=== PATIENT | male | born 1930 | race Caucasian/White ===

== ENCOUNTER 2017-01-16 16:00 | Inpatient (IN) | payer OTHER ==
[~2017-01-16] VITALS: Ht 157.5 cm; Wt 49.9 kg
[~2017-01-16 16:00] MED LIST: AMLO-512 PO; ASPI-1182 PO; GLIP5 PO; METF500T4 PO; ROSU10 PO; VALS160T2 PO
[2017-01-16 16:37] LABS: GLUCOSE,POINT OF CARE 93 MG/DL (70-110)
[2017-01-16 17:14] LABS: BASOPHILS % (AUTO) 0.3 % (0.0-2.0); EOSINOPHILS % (AUTO) 2.4 % (1.0-6.0); LYMPHOCYTES # (AUTO) 0.8 K/uL (1.0-4.8); LYMPHOCYTES % (AUTO) 15.1 % (22.0-44.0); MEAN CORPUSCULAR HEMOGLOBIN 30.2 pg (26.0-34.0); MEAN CORPUSCULAR HGB CONC 34.5 G/dL (31.0-37.0); MEAN CORPUSCULAR VOLUME 87 fL (80-100); MONOCYTES # (AUTO) 0.4 K/uL (0.1-1.0); MONOCYTES % (AUTO) 7.7 % (2.0-9.0); NEUTROPHILS % (AUTO) 74.5 % (40.0-70.0); PLATELET COUNT (AUTO) 103 K/uL (150-450); RED BLOOD CELL COUNT(AUTO) 1.84 MIL/uL (4.50-5.90); RED CELL DISTRIBUTION WIDTH 18.6 % (11.5-14.5); WHITE BLOOD COUNT (AUTO) 5.4 K/uL (4.5-11.0)
[2017-01-16 17:20] LABS: HEMATOCRIT 16.1 % (41-53); HEMOGLOBIN 5.6 g/dL (13.5-17.5)
[2017-01-16 17:26] LABS: PROTHROMBIN TIME 10.7 SEC (9.4-11.6)
[2017-01-16 17:32] LABS: B-TYPE NATRIURETIC PEPTIDE 363 pg/mL (0-100)
[2017-01-16 17:42] LABS: CHLORIDE 121 mmol/L (98-107); RBC MORPHOLOGY COMMENT ABNORMAL RBC MORPH; SODIUM SERUM 155 mmol/L (136-145)
[2017-01-16 17:43] LABS: ALANINE AMINOTRANSFERASE 21 U/L (12-78); ALBUMIN 3.1 g/dL (3.4-5.0); ASPARTATE AMINOTRANSFERASE 21 U/L (15-37); BILIRUBIN,TOTAL 0.3 mg/dL (0.1-1.0); CALCIUM, TOTAL 9.4 mg/dL (8.8-10.5); CREATINE KINASE, TOTAL 105 U/L (39-308); CREATININE 12.91 mg/dL (0.60-1.30); GLOMERULAR FILTR. RATE CALC 4 mL/min (>60); TOTAL PROTEIN, SERUM 6.3 g/dL (6.4-8.2)
[2017-01-16 17:46] LABS: ANION GAP 25 mmol/L (8-16); CARBON DIOXIDE 9 mmol/L (22-29)
[2017-01-16 17:47] LABS: POTASSIUM 6.1 mmol/L (3.5-5.1); UREA NITROGEN, BLOOD 174 mg/dL (7-18)
[2017-01-16 17:54] LABS: CREATINE KINASE MB 4.7 ng/mL (0-5)
[2017-01-16] MEDS ORDERED: SODIUM POLYSTYRENE SULFONATE 15 GM/60 ML SUSPENSION BOTTLE PO ONE ×2 (18:00→18:45)
[2017-01-16] MEDS ORDERED: CALCIUM GLUCONATE 100 MG/ML 10 ML IVP ONE (18:00)
[2017-01-16] MEDS ORDERED: ALBUTEROL SULFATE 2.5 MG/0.5 ML NEB SOLUTION NEB ONE (18:00)
[2017-01-16] MEDS ORDERED: SODIUM BICARBONATE 75 MEQ in DEXTROSE 5%-WATER 1,000 ML IV ONE (18:45)
[2017-01-16] MEDS ORDERED: 0.9% SODIUM CHLORIDE 5 ML NEB SOLUTION NEB ONE (18:55)
[2017-01-16] MEDS ORDERED: SODIUM BICARBONATE [ADULT] 8.4% 50 MEQ/50 ML SYRINGE IVP ONE (20:15)
[2017-01-16] MEDS ORDERED: ONDANSETRON HCL 4 MG/2 ML VIAL IVP PRN (20:15)
[2017-01-16] MEDS ORDERED: ACETAMINOPHEN 325 MG TABLET PO PRN (20:15)
[2017-01-16] MEDS ORDERED: 0.9% SODIUM CHLORIDE 10 ML SYRINGE IVP PRN (20:15)
[2017-01-16 21:40] LABS: CALCIUM, TOTAL 9.4 mg/dL (8.8-10.5); CREATININE 12.86 mg/dL (0.60-1.30)
[2017-01-16] MEDS ORDERED: SODIUM CHLORIDE 0.9% 250 ML IV ONE (22:00)
[2017-01-16] MEDS ORDERED: FUROSEMIDE 20 MG/2 ML VIAL IVP ONE (22:15)
[2017-01-16] MEDS ORDERED: ACETAMINOPHEN 325 MG TABLET PO ONE (22:15)
[2017-01-16 22:40] VITALS: BP 149/59
[2017-01-16 22:55] VITALS: BP 144/58
[2017-01-16 23:10] VITALS: BP 151/59
[2017-01-16 23:40] VITALS: BP 141/67
[2017-01-17] VITALS (28 sets, daily range): BP systolic 109–182; BP diastolic 50–93
[2017-01-17 04:01] LABS: CREATININE 12.3 mg/dL (0.60-1.30); POTASSIUM 4.6 mmol/L (3.5-5.1)
[2017-01-17 07:30] LABS: EOSINOPHILS % (AUTO) 0.9 % (1.0-6.0); HEMATOCRIT 27.6 % (41-53); HEMOGLOBIN 9.6 g/dL (13.5-17.5); LYMPHOCYTES # (AUTO) 0.6 K/uL (1.0-4.8); LYMPHOCYTES % (AUTO) 9.5 % (22.0-44.0); MEAN CORPUSCULAR HEMOGLOBIN 30.4 pg (26.0-34.0); MEAN CORPUSCULAR HGB CONC 34.8 G/dL (31.0-37.0); MEAN CORPUSCULAR VOLUME 87 fL (80-100); MONOCYTES # (AUTO) 0.4 K/uL (0.1-1.0); MONOCYTES % (AUTO) 6.3 % (2.0-9.0); NEUTROPHILS # (AUTO) 5.3 K/uL (1.8-7.7); NEUTROPHILS % (AUTO) 83.3 % (40.0-70.0); PLATELET COUNT (AUTO) 90 K/uL (150-450); RED BLOOD CELL COUNT(AUTO) 3.16 MIL/uL (4.50-5.90); RED CELL DISTRIBUTION WIDTH 15.5 % (11.5-14.5); WHITE BLOOD COUNT (AUTO) 6.4 K/uL (4.5-11.0)
[2017-01-17 07:46] LABS: ALBUMIN 2.9 g/dL (3.4-5.0); BILIRUBIN,TOTAL 0.6 mg/dL (0.1-1.0); CALCIUM, TOTAL 8.8 mg/dL (8.8-10.5); CREATININE 12.17 mg/dL (0.60-1.30); MAGNESIUM 1.9 mg/dL (1.80-2.40); POTASSIUM 4.5 mmol/L (3.5-5.1)
[2017-01-17] MEDS: AmLODIPine BESYLATE 10 MG TABLET PO SCH (07:53)
[2017-01-17] MEDS: VALSARTAN 160 MG TABLET PO SCH (07:53)
[2017-01-17] MEDS: ROSUVASTATIN CALCIUM 10 MG TABLET PO SCH (07:53)
[2017-01-17] MEDS ORDERED: ASPIRIN 81 MG EC TABLET PO SCH (09:00)
[2017-01-17] MEDS: OXYGEN THERAPY IH SCH ×2 (09:03→20:54)
[2017-01-17] MEDS ORDERED: DEXTROSE 50%-WATER 25 GM/50 ML SYRINGE IVP PRN (13:30)
[2017-01-17 13:42] LABS: CALCIUM, TOTAL 8.8 mg/dL (8.8-10.5); CREATININE 12.36 mg/dL (0.60-1.30); POTASSIUM 4.3 mmol/L (3.5-5.1)
[2017-01-17] MEDS: HydrALAZINE HCL 20 MG/ML VIAL IVP PRN ×2 (17:07→23:55)
[2017-01-17 19:42] LABS: CALCIUM, TOTAL 8.6 mg/dL (8.8-10.5); CREATININE 12.21 mg/dL (0.60-1.30); POTASSIUM 4.4 mmol/L (3.5-5.1)
[2017-01-17] MEDS: INSULIN ASPART 100 UNITS/ML SQ PRN (20:54)
[2017-01-17] MEDS: PANTOPRAZOLE SODIUM 40 MG/VIAL IVP SCH (23:55)
[2017-01-18 00:27] LABS: GLUCOSE,POINT OF CARE 106 MG/DL (70-110)
[2017-01-18 00:27] LABS: GLUCOSE,POINT OF CARE 98 MG/DL (70-110)
[2017-01-18 05:12] VITALS: BP 158/74
[2017-01-18] MEDS: INSULIN ASPART 100 UNITS/ML SQ PRN ×3 (05:58→21:00)
[2017-01-18 06:26] LABS: LYMPHOCYTES # (AUTO) 0.9 K/uL (1.0-4.8); MONOCYTES # (AUTO) 0.4 K/uL (0.1-1.0)
[2017-01-18 06:35] LABS: BASOPHILS % (AUTO) 0.3 % (0.0-2.0); EOSINOPHILS % (AUTO) 2.1 % (1.0-6.0); HEMATOCRIT 28.8 % (41-53); LYMPHOCYTES % (AUTO) 14.5 % (22.0-44.0); MEAN CORPUSCULAR HEMOGLOBIN 30.2 pg (26.0-34.0); MEAN CORPUSCULAR HGB CONC 34.9 G/dL (31.0-37.0); MEAN CORPUSCULAR VOLUME 87 fL (80-100); MONOCYTES % (AUTO) 5.8 % (2.0-9.0); NEUTROPHILS % (AUTO) 77.3 % (40.0-70.0); PLATELET COUNT (AUTO) 97 K/uL (150-450); RED BLOOD CELL COUNT(AUTO) 3.32 MIL/uL (4.50-5.90); RED CELL DISTRIBUTION WIDTH 16.1 % (11.5-14.5); WHITE BLOOD COUNT (AUTO) 6.5 K/uL (4.5-11.0)
[2017-01-18 06:44] LABS: CALCIUM, TOTAL 8.5 mg/dL (8.8-10.5); CREATININE 11.96 mg/dL (0.60-1.30); MAGNESIUM 1.7 mg/dL (1.80-2.40); PHOSPHORUS 7.1 mg/dL (2.5-4.9); POTASSIUM 4.1 mmol/L (3.5-5.1)
[2017-01-18 07:20] VITALS: BP 165/78
[2017-01-18] MEDS ORDERED: SODIUM CHLORIDE 0.45% 1,000 ML IV SCH (08:08)
[2017-01-18] MEDS: AmLODIPine BESYLATE 10 MG TABLET PO SCH (08:38)
[2017-01-18] MEDS: PANTOPRAZOLE SODIUM 40 MG/VIAL IVP SCH ×2 (08:38→20:44)
[2017-01-18] MEDS: VALSARTAN 160 MG TABLET PO SCH (08:38)
[2017-01-18] MEDS: ROSUVASTATIN CALCIUM 10 MG TABLET PO SCH (08:38)
[2017-01-18] MEDS: EPOETIN ALFA 10,000 UNITS/ML VIAL SQ SCH (08:39)
[2017-01-18] MEDS: OXYGEN THERAPY IH SCH ×2 (09:01→20:45)
[2017-01-18] MEDS ORDERED: LACTULOSE 20 GM/30 ML SOLUTION UDCUP PO PRN (09:30)
[2017-01-18] MEDS ORDERED: BISACODYL 10 MG RECTAL RECTAL SUPPOSITORY PR PRN (09:30)
[2017-01-18 10:23] VITALS: BP 155/79
[2017-01-18] MEDS: SODIUM BICARBONATE 75 MEQ in DEXTROSE 5%-WATER 1,000 ML IV SCH (11:57)
[2017-01-18 15:52] VITALS: BP 133/64
[2017-01-18 20:42] VITALS: BP 168/85
[2017-01-18 23:51] VITALS: BP 164/70
[2017-01-19] MEDS: SODIUM BICARBONATE 75 MEQ in DEXTROSE 5%-WATER 1,000 ML IV SCH ×2 (03:05→17:13)
[2017-01-19 05:17] VITALS: BP 164/67
[2017-01-19] MEDS: INSULIN ASPART 100 UNITS/ML SQ PRN ×3 (06:15→22:32)
[2017-01-19 06:46] LABS: EOSINOPHILS % (AUTO) 0.9 % (1.0-6.0); HEMATOCRIT 28.3 % (41-53); HEMOGLOBIN 9.8 g/dL (13.5-17.5); LYMPHOCYTES # (AUTO) 0.7 K/uL (1.0-4.8); LYMPHOCYTES % (AUTO) 6.9 % (22.0-44.0); MEAN CORPUSCULAR HEMOGLOBIN 30.1 pg (26.0-34.0); MEAN CORPUSCULAR HGB CONC 34.7 G/dL (31.0-37.0); MEAN CORPUSCULAR VOLUME 87 fL (80-100); MONOCYTES # (AUTO) 0.6 K/uL (0.1-1.0); NEUTROPHILS # (AUTO) 8.9 K/uL (1.8-7.7); PLATELET COUNT (AUTO) 98 K/uL (150-450); RED BLOOD CELL COUNT(AUTO) 3.26 MIL/uL (4.50-5.90); RED CELL DISTRIBUTION WIDTH 16.4 % (11.5-14.5); WHITE BLOOD COUNT (AUTO) 10.3 K/uL (4.5-11.0)
[2017-01-19 06:53] LABS: NEUTROPHILS % (AUTO) 86.2 % (40.0-70.0)
[2017-01-19 07:16] VITALS: BP 148/79
[2017-01-19 07:36] LABS: CALCIUM, TOTAL 8.3 mg/dL (8.8-10.5); CREATININE 11.11 mg/dL (0.60-1.30); MAGNESIUM 1.5 mg/dL (1.80-2.40); PHOSPHORUS 6.6 mg/dL (2.5-4.9); POTASSIUM 3.8 mmol/L (3.5-5.1)
[2017-01-19 08:21] VITALS: BP 152/79
[2017-01-19] MEDS: VALSARTAN 160 MG TABLET PO SCH (08:29)
[2017-01-19] MEDS: PANTOPRAZOLE SODIUM 40 MG/VIAL IVP SCH ×2 (08:31→20:28)
[2017-01-19] MEDS: AmLODIPine BESYLATE 10 MG TABLET PO SCH (08:33)
[2017-01-19] MEDS: ROSUVASTATIN CALCIUM 10 MG TABLET PO SCH (08:35)
[2017-01-19] MEDS: OXYGEN THERAPY IH SCH ×2 (08:45→20:28)
[2017-01-19 09:08] LABS: RBC MORPHOLOGY COMMENT ABNORMAL RBC MORPH
[2017-01-19 11:57] VITALS: BP 147/80
[2017-01-19 12:13] LABS: GLUCOSE,POINT OF CARE 130 MG/DL (70-110)
[2017-01-19 12:13] LABS: GLUCOSE,POINT OF CARE 184 MG/DL (70-110)
[2017-01-19 12:13] LABS: GLUCOSE,POINT OF CARE 122 MG/DL (70-110)
[2017-01-19 12:13] LABS: GLUCOSE,POINT OF CARE 166 MG/DL (70-110)
[2017-01-19 15:10] VITALS: BP 114/71
[2017-01-19] MEDS ORDERED: ACETAMINOPHEN 325 MG TABLET PO PRN (17:00)
[2017-01-19 20:17] VITALS: BP_SYST 156; BP_SYST 157; BP_DIAS 65; BP_DIAS 67
[2017-01-19 22:17] LABS: GLUCOSE,POINT OF CARE 89 MG/DL (70-110)
[2017-01-19 22:22] LABS: GLUCOSE,POINT OF CARE 172 MG/DL (70-110)
[2017-01-19 22:23] LABS: GLUCOSE,POINT OF CARE 75 MG/DL (70-110)
[2017-01-19 22:37] LABS: GLUCOSE COMMENT 1 Received Meds; GLUCOSE,POINT OF CARE 260 MG/DL (70-110)
[2017-01-20 00:29] VITALS: BP 159/62
[2017-01-20 06:17] VITALS: BP 167/67
[2017-01-20] MEDS: SODIUM BICARBONATE 75 MEQ in DEXTROSE 5%-WATER 1,000 ML IV SCH (06:27)
[2017-01-20 07:48] VITALS: BP 162/85
[2017-01-20] MEDS: OXYGEN THERAPY IH SCH ×2 (09:17→20:00)
[2017-01-20] MEDS: AmLODIPine BESYLATE 10 MG TABLET PO SCH (09:17)
[2017-01-20] MEDS: ROSUVASTATIN CALCIUM 10 MG TABLET PO SCH (09:17)
[2017-01-20] MEDS: PANTOPRAZOLE SODIUM 40 MG/VIAL IVP SCH ×2 (09:17→20:27)
[2017-01-20] MEDS: VALSARTAN 160 MG TABLET PO SCH (09:17)
[2017-01-20] MEDS: EPOETIN ALFA 10,000 UNITS/ML VIAL SQ SCH (09:18)
[2017-01-20 12:01] VITALS: BP 139/59
[2017-01-20] MEDS: INSULIN ASPART 100 UNITS/ML SQ PRN (12:42)
[2017-01-20 16:32] VITALS: BP 163/65
[2017-01-20 19:54] VITALS: BP 142/63
[2017-01-20 20:12] LABS: GLUCOSE COMMENT 1 Repeated; GLUCOSE,POINT OF CARE 136 MG/DL (70-110)
[2017-01-20 20:38] LABS: GLUCOSE,POINT OF CARE 184 MG/DL (70-110)
[2017-01-20 20:38] LABS: GLUCOSE COMMENT 1 Juice/Food/D50 Given; GLUCOSE,POINT OF CARE 69 MG/DL (70-110)
[2017-01-21] VITALS (8 sets, daily range): BP systolic 16–178; BP diastolic 58–77
[2017-01-21] MEDS: SODIUM BICARBONATE 75 MEQ in DEXTROSE 5%-WATER 1,000 ML IV SCH ×2 (01:44→16:23)
[2017-01-21 06:07] LABS: GLUCOSE,POINT OF CARE 107 MG/DL (70-110)
[2017-01-21] MEDS: OXYGEN THERAPY IH SCH ×2 (08:00→20:00)
[2017-01-21] MEDS: ROSUVASTATIN CALCIUM 10 MG TABLET PO SCH (09:28)
[2017-01-21] MEDS: PANTOPRAZOLE SODIUM 40 MG/VIAL IVP SCH ×2 (09:28→20:54)
[2017-01-21] MEDS: VALSARTAN 160 MG TABLET PO SCH (09:29)
[2017-01-21] MEDS: AmLODIPine BESYLATE 10 MG TABLET PO SCH (09:29)
[2017-01-21] MEDS: INSULIN ASPART 100 UNITS/ML SQ PRN ×2 (11:55→18:11)
[2017-01-21 13:42] LABS: GLUCOSE,POINT OF CARE 86 MG/DL (70-110)
[2017-01-21 18:28] LABS: GLUCOSE,POINT OF CARE 199 MG/DL (70-110)
[2017-01-21 18:28] LABS: GLUCOSE COMMENT 1 Received Meds; GLUCOSE,POINT OF CARE 142 MG/DL (70-110)
[2017-01-21 20:02] LABS: GLUCOSE,POINT OF CARE 260 MG/DL (70-110)
[2017-01-22 05:15] VITALS: BP 155/72
[2017-01-22 05:33] LABS: GLUCOSE COMMENT 1 Received Meds; GLUCOSE,POINT OF CARE 145 MG/DL (70-110)
[2017-01-22] MEDS: SODIUM BICARBONATE 75 MEQ in DEXTROSE 5%-WATER 1,000 ML IV SCH ×2 (06:15→23:59)
[2017-01-22 07:02] LABS: GLUCOSE,POINT OF CARE 132 MG/DL (70-110)
[2017-01-22 08:00] VITALS: BP 158/78
[2017-01-22] MEDS: OXYGEN THERAPY IH SCH (08:00)
[2017-01-22] MEDS: ROSUVASTATIN CALCIUM 10 MG TABLET PO SCH (08:11)
[2017-01-22] MEDS: AmLODIPine BESYLATE 10 MG TABLET PO SCH (08:11)
[2017-01-22] MEDS: PANTOPRAZOLE SODIUM 40 MG/VIAL IVP SCH ×2 (08:11→20:17)
[2017-01-22] MEDS: VALSARTAN 160 MG TABLET PO SCH (08:11)
[2017-01-22 11:19] VITALS: BP 155/71
[2017-01-22 16:12] VITALS: BP 147/68
[2017-01-22] MEDS: INSULIN ASPART 100 UNITS/ML SQ PRN (17:26)
[2017-01-22 17:58] LABS: GLUCOSE COMMENT 1 Received Meds; GLUCOSE,POINT OF CARE 200 MG/DL (70-110)
[2017-01-22 19:47] VITALS: BP 161/77
[2017-01-22 20:38] LABS: GLUCOSE,POINT OF CARE 87 MG/DL (70-110)
[2017-01-22 23:30] VITALS: BP 151/72
[2017-01-23 05:32] VITALS: BP 154/71
[2017-01-23 08:11] VITALS: BP 159/65
[2017-01-23 08:47] LABS: GLUCOSE,POINT OF CARE 98 MG/DL (70-110)
[2017-01-23] MEDS: OXYGEN THERAPY IH SCH ×2 (08:51→09:07)
[2017-01-23] MEDS: ROSUVASTATIN CALCIUM 10 MG TABLET PO SCH (08:52)
[2017-01-23] MEDS: VALSARTAN 160 MG TABLET PO SCH (08:52)
[2017-01-23] MEDS: EPOETIN ALFA 10,000 UNITS/ML VIAL SQ SCH (08:52)
[2017-01-23] MEDS: PANTOPRAZOLE SODIUM 40 MG/VIAL IVP SCH (08:52)
[2017-01-23] MEDS: AmLODIPine BESYLATE 10 MG TABLET PO SCH (08:53)
[2017-01-23 11:15] VITALS: BP 154/64
[2017-01-23] MEDS: INSULIN ASPART 100 UNITS/ML SQ PRN (11:36)
[2017-01-23] MEDS ORDERED: INFLUENZA VIRUS VACCINE QVS 2017-18 (3YR+)/PF 60 MCG/0.5 ML SYRINGE IM ONE (11:45)
[2017-01-23 11:48] LABS: GLUCOSE COMMENT 1 Received Meds; GLUCOSE,POINT OF CARE 172 MG/DL (70-110)
[2017-01-23 18:57] LABS: GLUCOSE,POINT OF CARE 106 MG/DL (70-110)
[2017-01-23 19:59] VITALS: BP 153/66
== END 2017-01-23 20:30 | DRG 377 ==
LOC: EMS 16:06 → 5S 21:08 → 6N 01-20 15:25
PROVIDERS: ADMIT Family Medicine; ATTEND Family Medicine
PROC: 30233N1 Transfusion of Nonautologous Red Blood Cells into Peripheral Vein, Percutaneous Approach (ICD-10-PCS; principal; 2017-01-16)
PROC: 3E0234Z Introduction of Serum, Toxoid and Vaccine into Muscle, Percutaneous Approach (ICD-10-PCS; 2017-01-23)
DX: K92.1 Melena (principal); E43 Unspecified severe protein-calorie malnutrition; N17.9 Acute kidney failure, unspecified; E87.0 Hyperosmolality and hypernatremia; E87.2 Acidosis; E11.22 Type 2 diabetes mellitus with diabetic chronic kidney disease; E86.0 Dehydration; N18.6 End stage renal disease; I12.0 Hypertensive chronic kidney disease with stage 5 chronic kidney disease or end stage renal disease; K92.2 Gastrointestinal hemorrhage, unspecified; E87.5 Hyperkalemia; D64.9 Anemia, unspecified; E78.00 Pure hypercholesterolemia, unspecified; F03.90 Unspecified dementia, unspecified severity, without behavioral disturbance, psychotic disturbance, mood disturbance, and anxiety; N40.0 Benign prostatic hyperplasia without lower urinary tract symptoms; R62.7 Adult failure to thrive; Z79.82 Long term (current) use of aspirin; Z79.84 Long term (current) use of oral hypoglycemic drugs; Z23 Encounter for immunization
CPT/HCPCS: 36430; 76770; 82271; 82962; 83540; 83550; 83735; 84100; 86850; 86900; 86901; 86920; 90471; 93005; 94640; 96365; 96366; 96375; 97110; 97116; 97162; 97166; 97530; 97535; 99285; C9113; J0360; J0610; J0885; J1940; J2405; J3490; J7050; J7060; P9016